=== PATIENT | female | born 1985 | race Native Hawaiian/Other Pacific Islander ===

== ENCOUNTER 2020-02-10 15:30 | Outpatient (CLI) | payer OTHER | END 2020-02-10 19:32 | disposition home or self-care (01) | LOC: RAD 15:30 | DX: M54.2 Cervicalgia (principal); M54.6 Pain in thoracic spine ==

== ENCOUNTER 2020-09-03 12:49 | Outpatient (CLI) | payer OTHER | END 2020-09-03 21:36 | disposition home or self-care (01) | LOC: MAMMO 12:49 | PROVIDERS: ATTEND Obstetrics & Gynecology | DX: N60.19 Diffuse cystic mastopathy of unspecified breast (principal) ==